=== PATIENT | male | born 1960 | race Caucasian/White ===

== ENCOUNTER 2019-08-08 06:30 | Inpatient (IN) | payer BC, OTHER ==
[~2019-08-08] VITALS: Ht 165.1 cm; Wt 98.9 kg
[2019-08-08] MEDS ORDERED: ACETAMINOPHEN 325 MG TABLET PO ONE (07:00)
[2019-08-08] MEDS ORDERED: SODIUM CHLORIDE 0.9% 1,000ML IVBOLUS ONE ×2 (07:00→09:00)
[2019-08-08] MEDS ORDERED: ACETAMINOPHEN 325 MG TABLET ONE (07:24)
[2019-08-08 07:38] LABS: MEAN CORPUSCULAR HEMOGLOBIN 29.6 pg (27.5-34.5); MEAN CORPUSCULAR HGB CONC 33.6 g/dL (33.2-36.2); MEAN PLATELET VOLUME 8.1 fL (7.4-10.4); PLATELET COUNT 221 x10^3/uL (130-400); RED BLOOD COUNT 5.48 x10^6/uL (4.38-5.82); RED CELL DISTRIBUTION WIDTH 13.8 % (9.4-14.8)
[2019-08-08 07:45] LABS: RAPID INFLUENZA A Negative (Negative); RAPID INFLUENZA B Negative (Negative)
[2019-08-08 07:46] LABS: ALBUMIN 3.4 g/dL (3.4-5.0); ANION GAP 9 mmol/L (5-15); CALCIUM 8.5 mg/dL (8.5-10.1); CHLORIDE 104 mmol/L (98-107); CREATININE 1.46 mg/dL (0.7-1.3)
[2019-08-08 07:50] LABS: TROPONIN I < 0.015 ng/mL (0.000-0.045)
[2019-08-08 08:09] LABS: MD YES
[2019-08-08 08:12] LABS: <PLATELET ESTIMATE> ADEQUATE; <PLT MORPHOLOGY> NORMAL PLT MORPH; <RBC MORPHOLOGY> NORMAL; BANDS%(MANUAL) 18 % (0-7); LYMPHS% (MANUAL) 7 % (22-44); METAMYELOCYTES% (MANUAL) 1 % (0-1); MONOS% (MANUAL) 3 % (2-9); SEGS% (MANUAL) 71 % (42-75)
[2019-08-08] MEDS ORDERED: CEFTRIAXONE PMX 1GM/50ML 50 ML ONE (08:35)
[2019-08-08] MEDS ORDERED: AZITHROMYCIN 500 MG in SODIUM CHLORIDE 0.9% 250 ML IV ONE (09:00)
[2019-08-08] MEDS ORDERED: GABAPENTIN 300 MG CAPSULE PO PRN (09:00)
[2019-08-08] MEDS ORDERED: KETOROLAC 30 MG/1 ML IV PRN ×2 (09:00→09:41)
[2019-08-08] MEDS ORDERED: IBUPROFEN 600 MG TABLET PO PRN ×2 (09:00→09:40)
[2019-08-08] MEDS ORDERED: LIDODERM 5% PATCH TD PRN (09:00)
[2019-08-08] MEDS ORDERED: ONDANSETRON ODT 4 MG PO PRN (09:00)
[2019-08-08] MEDS ORDERED: morphine SULFATE 10 MG/ML, 1ML IVPush PRN (09:00)
[2019-08-08] MEDS ORDERED: CEFTRIAXONE PMX 1GM/50ML 50 ML IV ONE (09:00)
[2019-08-08] MEDS ORDERED: BACLOFEN 10 MG TABLET PO PRN (09:00)
[2019-08-08] MEDS ORDERED: hydrALAzine 20 MG/ML, 1ML IVPush PRN (09:00)
[2019-08-08] MEDS ORDERED: ONDANSETRON 2MG/ML, 2ML ONE ×2 (09:48→20:07)
[2019-08-08] MEDS ORDERED: KETOROLAC 30 MG/1 ML ONE (09:48)
[2019-08-08] MEDS: ONDANSETRON 2MG/ML, 2ML IVPush PRN ×2 (09:51→20:08)
--- NOTE | 2019-08-08 10:22 | NUR ---
2L NS COMPLETE. ROCEPHIN 1GM COMPLETE. AZITHROMYCIN 500MG RUNNING. PT MEDICATED FOR PAIN AND NAUSEA. OXYGEN AT 2LPM APPLIED VIA NASAL CANNULA FOR SLIGHT HYPOXIA AT 88-89% ON ROOM AIR. AHT944% NOW WITH SUPPLEMENTAL OXYGEN. PT RESTING AND WATCHING TV. PHARMACY REQUEST SLIP SENT TO PHARMACY FOR MAINTANANCE FLUIDS WITH KCL.
[2019-08-08] MEDS: D5%-0.45NACL+KCL 20MEQ 1,000 ML IV SCH ×2 (10:59→20:05)
--- NOTE | 2019-08-08 11:06 | NUR ---
IV MAINTANANCE IV FLUID STARTED. PT RESTING WITH NO COMPLAINTS.
--- NOTE | 2019-08-08 11:08 | NUR ---
VS UPDATED AND STABLE. PT WATCHING TV. SIDE RAILS UP X 2 FOR SAFETY. CALL BUTTON IN LAP.
--- NOTE | 2019-08-08 12:14 | NUR ---
Recieved bedside report from Dev TUCKER
--- NOTE | 2019-08-08 15:12 | NUR ---
Pt placed on bed, pt remains alert and oreinted. breathing unlabored. Pt Denies any needs at this time.
[2019-08-08 15:28] LABS: TROPONIN I < 0.015 ng/mL (0.000-0.045)
--- NOTE | 2019-08-08 17:38 | NUR ---
BREAK RN: PT WATCHING TV. 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 NSR NOTED. VS STABLE. CALL LIGHT IN PLACE. NO ACUTE DISTRESS NOTED. WILL CONTINUE TO MONITOR WHILE PRIMARY RN IS ON BREAK.
[2019-08-08] MEDS ORDERED: MORPHINE SULFATE 4 MG/ML, 1ML ONE (20:07)
--- NOTE | 2019-08-08 20:10 | NUR ---
PT REPORTING PAIN, MEDICATED PER EMAR.
--- NOTE | 2019-08-08 20:34 | NUR ---
PT RESTING, NADN. AWAITING FURTHER ODERS.
[2019-08-08 21:00] VITALS: BP 119/82
--- NOTE | 2019-08-08 21:05 | NUR ---
REPORT TO RAIZA TUCKER
[2019-08-08 21:47] LABS: TROPONIN I < 0.015 ng/mL (0.000-0.045)
[2019-08-09 01:43] VITALS: BP_SYST 109; BP_SYST 111; BP_DIAS 63
[2019-08-09] MEDS: D5%-0.45NACL+KCL 20MEQ 1,000 ML IV SCH (06:31)
[2019-08-09 06:43] VITALS: BP 117/78
[2019-08-09 07:09] LABS: BASOPHILS # (AUTO) 0.14 x10^3/uL (0-0.1); BASOPHILS % (AUTO) 1 % (0-1); EOSINOPHILS # (AUTO) 0.05 x10^3/uL (0-0.4); EOSINOPHILS % (AUTO) 0 % (1-7); LYMPHOCYTES % (AUTO) 10 % (22-44); MD NO; MEAN CORPUSCULAR HEMOGLOBIN 29.4 pg (27.5-34.5); MEAN CORPUSCULAR HGB CONC 32.8 g/dL (33.2-36.2); MEAN CORPUSCULAR VOLUME 89.4 fL (81-97); MEAN PLATELET VOLUME 8.4 fL (7.4-10.4); MONOCYTES # (AUTO) 0.69 x10^3/uL (0.2-0.8); MONOCYTES % (AUTO) 4 % (2-9); NEUTROPHILS # (AUTO) 13.85 x10^3/uL (1.8-6.8); NEUTROPHILS % (AUTO) 84 % (42-75); PLATELET COUNT 195 x10^3/uL (130-400); RED BLOOD COUNT 4.79 x10^6/uL (4.38-5.82); RED CELL DISTRIBUTION WIDTH 14.1 % (9.4-14.8)
[2019-08-09 07:18] LABS: ANION GAP 3 mmol/L (5-15); CALCIUM 7.9 mg/dL (8.5-10.1); CHLORIDE 108 mmol/L (98-107)
[2019-08-09 07:19] LABS: CREATININE 1.17 mg/dL (0.7-1.3)
[2019-08-09] MEDS: ACETAMINOPHEN 325 MG TABLET PO PRN ×2 (09:51→21:54)
[2019-08-09] MEDS: CEFTRIAXONE PMX 1GM/50ML 50 ML IV SCH (10:31)
[2019-08-09] MEDS: AZITHROMYCIN 500 MG in SODIUM CHLORIDE 0.9% 250 ML IV SCH (11:26)
[2019-08-09 12:15] VITALS: BP 118/80
[2019-08-09 18:48] VITALS: BP 124/85
[2019-08-10 00:41] VITALS: BP 132/84
[2019-08-10 06:27] LABS: ANION GAP 6 mmol/L (5-15); CHLORIDE 109 mmol/L (98-107); CREATININE 1.03 mg/dL (0.7-1.3)
[2019-08-10 06:28] LABS: BASOPHILS # (AUTO) 0.02 x10^3/uL (0-0.1); BASOPHILS % (AUTO) 0 % (0-1); EOSINOPHILS # (AUTO) 0.19 x10^3/uL (0-0.4); EOSINOPHILS % (AUTO) 2 % (1-7); LYMPHOCYTES # (AUTO) 1.54 x10^3/uL (1-3.4); LYMPHOCYTES % (AUTO) 15 % (22-44); MD NO; MEAN CORPUSCULAR HEMOGLOBIN 29.2 pg (27.5-34.5); MEAN CORPUSCULAR HGB CONC 32.9 g/dL (33.2-36.2); MEAN CORPUSCULAR VOLUME 88.9 fL (81-97); MEAN PLATELET VOLUME 8.1 fL (7.4-10.4); MONOCYTES % (AUTO) 7 % (2-9); NEUTROPHILS # (AUTO) 7.78 x10^3/uL (1.8-6.8); NEUTROPHILS % (AUTO) 76 % (42-75); PLATELET COUNT 211 x10^3/uL (130-400); RED BLOOD COUNT 4.65 x10^6/uL (4.38-5.82); RED CELL DISTRIBUTION WIDTH 13.7 % (9.4-14.8)
[2019-08-10 07:44] VITALS: BP 133/83
[2019-08-10] MEDS ORDERED: AZIT500T10 PO (08:39)
[2019-08-10] MEDS ORDERED: AMOX500T PEG (08:39)
[2019-08-10] MEDS: CEFTRIAXONE PMX 1GM/50ML 50 ML IV SCH (10:19)
[2019-08-10] MEDS: AZITHROMYCIN 500 MG in SODIUM CHLORIDE 0.9% 250 ML IV SCH (10:57)
== END 2019-08-10 13:34 | disposition home or self-care (01) | DRG 871 ==
LOC: ED 07:12 → EDIP 08:53 → 4EST 21:31 → DCLOUNGE 08-10 13:34
PROVIDERS: ADMIT Hospitalist; ATTEND Family Medicine
DX: A41.9 Sepsis, unspecified organism (principal); N17.0 Acute kidney failure with tubular necrosis; J96.01 Acute respiratory failure with hypoxia; J18.9 Pneumonia, unspecified organism; Z80.9 Family history of malignant neoplasm, unspecified; Z87.442 Personal history of urinary calculi
CPT/HCPCS: 36415; 71046; 80048; 82040; 83605; 84145; 84484; 85025; 87040; 87070; 87081; 87205; 87400; 87880; 93005; 96361; 96374; 96375; 96376; 99285; G0378; J0456; J0696; J1885; J2405; J2270; J3480; J7030; J7050

== ENCOUNTER 2020-08-28 08:43 | Emergency (ER) | payer BC, MEDICAID ==
[~2020-08-28] VITALS: Ht 162.6 cm; Wt 106.4 kg
[~2020-08-28 08:43] MED LIST: AMOX500T PEG; AZIT500T10 PO
--- NOTE | 2020-08-28 09:09 | NUR ---
PT BROUGHT BACK TO ROOM FROM TRIAGE. PT CO COUGH, CONGESTIONA ND MCLEOD X1 DAY. PT STARTED A NEW JOB AND SAID "NOBODY WEARS MASKS." PT DENIES ANY FEVER SOB, NV. PT WANTS COVID TEST.
[2020-08-28 09:39] LABS: BASOPHILS % (AUTO) 1 % (0-1); EOSINOPHILS % (AUTO) 1 % (1-7); LYMPHOCYTES % (AUTO) 33 % (22-44); MD NO; MEAN CORPUSCULAR HEMOGLOBIN 30.2 pg (27.5-34.5); MEAN CORPUSCULAR HGB CONC 34.6 g/dL (33.2-36.2); MEAN PLATELET VOLUME 8.6 fL (7.4-10.4); MONOCYTES % (AUTO) 9 % (2-9); NEUTROPHILS % (AUTO) 55 % (42-75); PLATELET COUNT 198 x10^3/uL (130-400); RED BLOOD COUNT 5.38 x10^6/uL (4.38-5.82); RED CELL DISTRIBUTION WIDTH 13.8 % (9.4-14.8)
[2020-08-28 09:50] LABS: ALBUMIN 3.8 g/dL (3.4-5.0); CALCIUM 8.8 mg/dL (8.5-10.1); CHLORIDE 109 mmol/L (98-107)
[2020-08-28 09:53] LABS: ANION GAP 7 mmol/L (5-15); CREATININE 1.25 mg/dL (0.7-1.3)
[2020-08-28 10:10] VITALS: BP 182/117
--- NOTE | 2020-08-28 10:30 | NUR ---
PT RESTING COMFORTABLY IN BED. CALL LIGHT WITHIN REACH
--- NOTE | 2020-08-28 11:42 | NUR ---
DISCHARGE INSTRUCTIONS REVIEWED WITH PT. ALL QUESTIONS ANSWERED AT THIS TIME
== END 2020-08-28 11:44 | disposition home or self-care (01) ==
LOC: ED 08:47
DX: J00 Acute nasopharyngitis [common cold] (principal); Z20.822 Contact with and (suspected) exposure to COVID-19; R51.9 Headache, unspecified; R09.81 Nasal congestion; R05 Cough; R06.02 Shortness of breath
CPT/HCPCS: 36415; 71046; 80048; 82040; 85025; 93005; 99285; U0003

== ENCOUNTER 2021-01-28 07:30 | Inpatient (IN) | payer BC, MEDICAID ==
[~2021-01-28] VITALS: Ht 162.6 cm; Wt 98.1 kg
--- NOTE | 2021-01-28 07:40 | NUR ---
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
--- NOTE | 2021-01-28 07:48 | NUR ---
FIRST CONTACT: N/V/D x4 days, fatigue and SOB with cough. +COVID. hypoxic in triage. not on O2 at home. pt has not been vaccinated. ROOM SPO2 85%. PT PLACED ON 2 L O2. PT TO ROOM VIA WHEELCHAIR. STEADY PIVIOT TO BED. PT ATTACHED TO MONITORS. VSS. POSTIONED TO COMFORT. DR. GARZON TO BEDSIDE FOR EVALUATION.
[2021-01-28 08:56] LABS: BASOPHILS % (AUTO) 0 % (0-1); EOSINOPHILS % (AUTO) 0 % (1-7); LYMPHOCYTES % (AUTO) 18 % (22-44); MEAN CORPUSCULAR HEMOGLOBIN 29.4 pg (27.5-34.5); MEAN CORPUSCULAR HGB CONC 34.5 g/dL (33.2-36.2); MEAN PLATELET VOLUME 8.9 fL (7.4-10.4); MONOCYTES % (AUTO) 13 % (2-9); NEUTROPHILS % (AUTO) 69 % (42-75); PLATELET COUNT 140 x10^3/uL (130-400); RED BLOOD COUNT 5.78 x10^6/uL (4.38-5.82); RED CELL DISTRIBUTION WIDTH 14.2 % (9.4-14.8)
[2021-01-28 09:06] LABS: ALANINE AMINOTRANSFERASE 41 U/L (12-78); ALBUMIN 3.1 g/dL (3.4-5.0); ANION GAP 9 mmol/L (5-15); CALCIUM 8.7 mg/dL (8.5-10.1); CHLORIDE 100 mmol/L (98-107); CREATININE 1.07 mg/dL (0.7-1.3)
[2021-01-28 09:09] LABS: D-DIMER (DIC) 0.85 ug/mlFEU (0.00-0.52); PROTIME 10.6 Seconds (9.6-11.5)
[2021-01-28 09:13] LABS: ALKALINE PHOSPHATASE 56 U/L (45-117); BILIRUBIN,TOTAL 0.8 mg/dL (0.2-1.0); TOTAL PROTEIN 7.6 g/dL (6.4-8.2)
--- NOTE | 2021-01-28 09:32 | NUR ---
pt resting in bed. vss. nadn. awaitng admit
--- NOTE | 2021-01-28 09:48 | NUR ---
pt medicated per emar. vss. sharan.
[2021-01-28] MEDS ORDERED: SODIUM CHLORIDE FLUSH 10ML SYR IVF PRN (10:00)
[2021-01-28] MEDS ORDERED: CEFTRIAXONE 1,000 MG in DEXTROSE 5% 50 ML IVPB ONE (10:00)
--- NOTE | 2021-01-28 10:04 | NUR ---
[facility] AT BEDSIDE.
[2021-01-28] MEDS: CEFTRIAXONE 1,000 MG in DEXTROSE 5% 50 ML IVPB SCH (10:22)
[2021-01-28] MEDS ORDERED: ACETAMINOPHEN 325 MG TABLET PO PRN (10:30)
[2021-01-28] MEDS: CHOLECALCIFEROL 5,000u TAB PO SCH (10:30)
[2021-01-28] MEDS ORDERED: ONDANSETRON ODT 4 MG PO PRN (10:30)
[2021-01-28] MEDS ORDERED: ONDANSETRON 2MG/ML, 2ML IVPush PRN (10:30)
[2021-01-28] MEDS: FAMOTIDINE 20 MG/2 ML IVPush SCH ×2 (10:30→20:10)
[2021-01-28] MEDS ORDERED: SENNA/DOCUSATE TABLET PO PRN (10:30)
[2021-01-28] MEDS ORDERED: POLYETHYLENE GLYCOL 17 GM PACKET PO PRN (10:30)
[2021-01-28] MEDS: THIAMINE 100MG TABLET PO SCH (10:30)
--- NOTE | 2021-01-28 10:33 | NUR ---
PT TO CT
--- NOTE | 2021-01-28 10:38 | NUR ---
YELLOW MED SLIP SENT TO PHARM TO REQUEST IVF.
[2021-01-28] MEDS ORDERED: ENOXAPARIN 40 MG/0.4 ML ONE (10:44)
[2021-01-28] MEDS ORDERED: THIAMINE 100MG TABLET ONE (10:45)
[2021-01-28] MEDS ORDERED: DEXAMETHASONE 4 MG/ML, 1ML ONE (10:45)
[2021-01-28] MEDS ORDERED: ONDANSETRON 2MG/ML, 2ML ONE (10:45)
[2021-01-28] MEDS ORDERED: ZINC SULFATE 220 MG CAPSULE ONE (10:45)
[2021-01-28] MEDS ORDERED: CHOLECALCIFEROL 1,000 UNIT TABLET ONE (10:45)
[2021-01-28] MEDS ORDERED: OMNIPAQUE 350 MG/ML, 100ML BOTTLE ONE (10:48)
[2021-01-28] MEDS: D5%-0.45NACL+KCL 20MEQ 1,000 ML IV SCH ×2 (10:56→18:26)
[2021-01-28] MEDS: ZINC SULFATE 220 MG CAPSULE PO SCH (10:58)
[2021-01-28] MEDS: ENOXAPARIN 40 MG/0.4 ML SQ SCH (10:58)
[2021-01-28] MEDS: DEXAMETHASONE 4 MG/ML, 1ML IVPush SCH (10:58)
[2021-01-28] MEDS ORDERED: AZITHROMYCIN 500 MG in SODIUM CHLORIDE 0.9% 250 ML IVPB ONE (11:00)
--- NOTE | 2021-01-28 11:04 | NUR ---
pt medicated per emar. vss. sharan.
--- NOTE | 2021-01-28 11:55 | NUR ---
REPORT CALLED TO QUINTIN TUCKER.
[2021-01-28 12:39] VITALS: BP 138/94
[2021-01-28 13:00] VITALS: BP 128/88
[2021-01-28] MEDS: ASCORBIC ACID 500 MG TABLET PO SCH (20:10)
[2021-01-28] MEDS: MELATONIN 5 MG TABLET PO SCH (20:11)
[2021-01-28 20:19] VITALS: BP 122/85
[2021-01-29 01:43] VITALS: BP 118/81
[2021-01-29 07:56] VITALS: BP 133/92
[2021-01-29] MEDS: FAMOTIDINE 20 MG/2 ML IVPush SCH ×2 (09:00→20:49)
[2021-01-29] MEDS: DEXAMETHASONE 4 MG/ML, 1ML IVPush SCH (09:38)
[2021-01-29] MEDS: CHOLECALCIFEROL 5,000u TAB PO SCH (09:38)
[2021-01-29] MEDS: AZITHROMYCIN 500 MG TABLET PO SCH (09:38)
[2021-01-29] MEDS: THIAMINE 100MG TABLET PO SCH (09:38)
[2021-01-29] MEDS: ASCORBIC ACID 500 MG TABLET PO SCH ×2 (09:38→20:48)
[2021-01-29] MEDS: ZINC SULFATE 220 MG CAPSULE PO SCH (09:38)
[2021-01-29] MEDS: CEFTRIAXONE 1,000 MG in DEXTROSE 5% 50 ML IVPB SCH (09:46)
[2021-01-29] MEDS: ENOXAPARIN 40 MG/0.4 ML SQ SCH (09:53)
[2021-01-29 13:55] VITALS: BP 132/88
[2021-01-29] MEDS: BENZONATATE 100 MG CAPSULE PO SCH ×2 (16:32→20:49)
[2021-01-29 19:03] VITALS: BP 129/84
[2021-01-29] MEDS: MELATONIN 5 MG TABLET PO SCH (20:49)
[2021-01-29] MEDS: GUAIFENESIN ER 600 MG TABLET PO SCH (20:49)
[2021-01-30] MEDS: TEMAZEPAM 15 MG CAPSULE PO PRN ×2 (00:08→23:48)
[2021-01-30 02:14] VITALS: BP 121/81
[2021-01-30 07:58] VITALS: BP 124/85
[2021-01-30] MEDS: ASCORBIC ACID 500 MG TABLET PO SCH ×2 (09:00→21:05)
[2021-01-30] MEDS: CHOLECALCIFEROL 5,000u TAB PO SCH (10:57)
[2021-01-30] MEDS: GUAIFENESIN ER 600 MG TABLET PO SCH ×2 (10:57→21:05)
[2021-01-30] MEDS: ZINC SULFATE 220 MG CAPSULE PO SCH (10:57)
[2021-01-30] MEDS: ENOXAPARIN 40 MG/0.4 ML SQ SCH (10:57)
[2021-01-30] MEDS: AZITHROMYCIN 500 MG TABLET PO SCH (10:57)
[2021-01-30] MEDS: THIAMINE 100MG TABLET PO SCH (10:58)
[2021-01-30] MEDS: BENZONATATE 100 MG CAPSULE PO SCH ×3 (10:58→21:05)
[2021-01-30] MEDS: FAMOTIDINE 20 MG/2 ML IVPush SCH ×2 (10:58→21:06)
[2021-01-30] MEDS: DEXAMETHASONE 4 MG/ML, 1ML IVPush SCH (10:59)
[2021-01-30] MEDS ORDERED: ASCORBIC ACID 250 MG TAB ONE (11:01)
[2021-01-30] MEDS: CEFTRIAXONE 1,000 MG in DEXTROSE 5% 50 ML IVPB SCH (11:02)
[2021-01-30 12:00] VITALS: BP 127/88
[2021-01-30 18:58] VITALS: BP 141/90
[2021-01-30] MEDS: MELATONIN 5 MG TABLET PO SCH (21:06)
[2021-01-30 23:50] VITALS: BP 145/92
[2021-01-31 00:10] VITALS: BP 145/92
[2021-01-31] MEDS ORDERED: GUAIFENESIN/COD200MG-20MG/10ML LIQUID PO ONE (05:30)
[2021-01-31] MEDS ORDERED: DEXA4TAB66 PO (07:38)
[2021-01-31] MEDS ORDERED: BENZ-17 PO (07:38)
[2021-01-31] MEDS: DEXAMETHASONE 4 MG/ML, 1ML IVPush SCH (09:52)
[2021-01-31] MEDS: ZINC SULFATE 220 MG CAPSULE PO SCH (09:53)
[2021-01-31] MEDS: CEFTRIAXONE 1,000 MG in DEXTROSE 5% 50 ML IVPB SCH (09:53)
[2021-01-31] MEDS: ENOXAPARIN 40 MG/0.4 ML SQ SCH (09:53)
[2021-01-31] MEDS: CHOLECALCIFEROL 5,000u TAB PO SCH (09:53)
[2021-01-31] MEDS: BENZONATATE 100 MG CAPSULE PO SCH ×2 (09:53→16:26)
[2021-01-31] MEDS: AZITHROMYCIN 500 MG TABLET PO SCH (09:53)
[2021-01-31] MEDS: THIAMINE 100MG TABLET PO SCH (09:54)
[2021-01-31] MEDS: ASCORBIC ACID 500 MG TABLET PO SCH (09:54)
[2021-01-31] MEDS: GUAIFENESIN ER 600 MG TABLET PO SCH (09:54)
[2021-01-31 13:01] VITALS: BP 151/101
[2021-01-31] MEDS ORDERED: FAMOTIDINE 20 MG TABLET PO SCH (21:00)
== END 2021-01-31 17:28 | disposition home or self-care (01) | DRG 177 ==
LOC: ED 07:34 → EDIP 09:46 → 3N 12:24
PROVIDERS: ADMIT Family Medicine; ATTEND Hospitalist
DX: U07.1 COVID-19 (principal); J12.82 Pneumonia due to coronavirus disease 2019; J96.01 Acute respiratory failure with hypoxia; E86.0 Dehydration; E66.9 Obesity, unspecified; I10 Essential (primary) hypertension; Z68.36 Body mass index [BMI] 36.0-36.9, adult; Z87.442 Personal history of urinary calculi; Z80.49 Family history of malignant neoplasm of other genital organs; Z82.5 Family history of asthma and other chronic lower respiratory diseases; Z80.8 Family history of malignant neoplasm of other organs or systems; Z82.3 Family history of stroke; Z28.3 Underimmunization status
CPT/HCPCS: 36415; 71045; 71275; 80053; 82728; 83605; 83615; 84145; 85025; 85049; 85379; 85384; 85610; 85730; 86140; 87040; 93005; 96365; 96375; 96376; G0378; J0456; J0696; J1100; J1650; J2405; Q9967; J3480; J7050